=== PATIENT | male | born 1950 | race Caucasian/White ===

== ENCOUNTER 2016-11-24 11:56 | Outpatient (CLI) | payer MEDICARE, OTHER | END 2016-11-24 11:57 | disposition home or self-care (01) | DX: M05.79 Rheumatoid arthritis with rheumatoid factor of multiple sites without organ or systems involvement (principal) ==

== ENCOUNTER 2017-08-18 08:00 | Outpatient (CLI) | payer MEDICARE, OTHER ==
[2017-08-18 19:16] LABS: BASOPHILS # (AUTO) 0.1 10^3/uL (0.0-0.1); BASOPHILS % (AUTO) 1.2 %; EOSINOPHILS # (AUTO) 0.4 10^3/uL (0.0-0.7); EOSINOPHILS % (AUTO) 6.4 %; HCT - HEMATOCRIT 43.8 % (42.0-52.0); HGB - HEMOGLOBIN 14.4 g/dL (14.0-18.0); LYMPHOCYTES # (AUTO) 1.5 10^3/uL (1.5-3.5); LYMPHOCYTES % (AUTO) 23.8 %; MEAN CORPUSCULAR HEMOGLOBIN 30.2 pg (27.0-31.0); MEAN CORPUSCULAR HGB CONC 32.9 g/dL (32.0-36.0); MEAN CORPUSCULAR VOLUME 91.8 fL (80.0-94.0); MEAN PLATELET VOLUME 8.3 fL (7.4-11.4); MONOCYTES # (AUTO) 0.6 10^3/uL (0.0-1.0); MONOCYTES % (AUTO) 9.6 %; NEUTROPHILS # (AUTO) 3.8 10^3/uL (1.5-6.6); NUCLEATED RED BLOOD CELLS AUTO 0.2 /100WBC; RED BLOOD COUNT 4.77 10^6/uL (4.70-6.10); RED CELL DISTRIBUTION WIDTH 14.9 % (12.0-15.0); UNCORRECTED WHITE BLOOD COUNT 6.4 x10^3/uL; WHITE BLOOD COUNT 6.4 x10^3/uL (4.8-10.8)
[2017-08-18 19:33] LABS: ALBUMIN/GLOBULIN RATIO 1.2 (1.0-2.2); BILIRUBIN,TOTAL 1.1 mg/dL (0.2-1.0); CALCIUM 9.2 mg/dL (8.5-10.3); CREATININE 1.3 mg/dL (0.6-1.2); POTASSIUM 4.7 mmol/L (3.5-5.0); TOTAL PROTEIN 7.5 g/dL (6.7-8.2)
== END 2017-08-18 08:01 ==
LOC: LAB.WCP 08:00
PROVIDERS: ATTEND Internal Medicine Rheumatology
DX: M05.79 Rheumatoid arthritis with rheumatoid factor of multiple sites without organ or systems involvement (principal)
CPT/HCPCS: 36415; 80053; 85025; 85651

== ENCOUNTER 2017-10-01 08:54 | Emergency (ER) | payer MEDICARE, OTHER ==
[2017-10-01] MEDS ORDERED: LIDOCAINE 1% 2 ML VIAL ONE (09:33)
--- NOTE | 2017-10-01 09:33 | ED Physician Documentation ---
PD HPI WOUND RECHECK - Stated complaint Stated Complaint: WOUND CHECK - Chief complaint Chief Complaint: General - Histroy obtained from History obtained from: Patient, Family - History of Present Illness Location: Back Timing - onset: Other (mole removal 09/19, sutures removed yesterday) Pain level max: 0 Pain level now: 0 Associated symptoms: Drainage (wound dehiscence). No: Fever, Redness, Swelling Review of Systems Constitutional: denies: Fever Skin: denies: Rash PD PAST MEDICAL HISTORY - Past Medical History Past Medical History: Yes Cardiovascular: Hypertension - Past Surgical History Past Surgical History: Yes Other past surgical history: mole removal - Present Medications Home Medications: Ambulatory Orders Medication Instructions Recorded Confirmed Aspirin 81 mg PO DAILY 10/01/17 10/01/17 Atorvastatin [Lipitor] 20 mg PO DAILY 10/01/17 10/01/17 Fluticasone/Salmeterol [Advair BID 10/01/17 100-50 Diskus] Golimumab [Simponi] 10/01/17 Levothyroxine Sodium 137 mcg PO DAILY 10/01/17 10/01/17 Losartan [Cozaar] 50 mg PO BID 10/01/17 10/01/17 Tiotropium [place] [Spiriva] DAILY 10/01/17 Zolpidem Tartrate [Ambien] 10 mg PO DAILY 10/01/17 10/01/17 - Allergies Allergies/Adverse Reactions: Allergies Allergy/AdvReac Type Severity Reaction Status Date / Time No Known Drug Allergies Allergy Verified 10/01/17 09:01 - Living Situation Living Situation: reports: With family Living Arrangement: reports: At home - Social History Does the pt have substance abuse?: No PD ED PE NORMAL - Vitals Vital signs reviewed: Yes - General General: Alert and oriented X 3, No acute distress - Derm Derm: Warm and dry - Neuro Neuro: Alert and oriented X 3 PD ED PE EXPANDED - Visual Whole body visual: 1 - laceration (2cm, linear, NVI. no signs of infection) Results - Vitals Vitals: Vital Signs - 24 hr 10/01/17 08:58 Temperature 36.1 C L Heart Rate 67 Respiratory 16 Rate Blood Pressure 119/65 O2 Saturation 96 Oxygen O2 Source Room air Procedures - Laceration (location) back Length in cm: 2 Wound type: Linear Neurovascular status: Sensory intact, Motor intact, Vascular intact Anesthesia: Lidocaine 1% Wound Preparation: Irrigated copiously NS (500ml), Wound explored Skin layer closure: Nela (5) Other: Patient tolerated well, No complications, Neurovascular intact, Dressing applied, Tetanus UTD Complexity: Simple PD MEDICAL DECISION MAKING - ED course Complexity details: re-evaluated patient, considered differential, d/w patient, d/w family ED course: Patient is a 66-year-old gentleman who presents to the emergency department with a wound dehiscence from a mole removal. This was repaired with nela. Tolerated well. Warnings of infection and instructions on wound care given at bedside. Also counseled on how to minimize scarring. Patient and family counseled regarding signs and symptoms for which I believe and urgent re- evaluation would be necessary. Patient with good understanding of and agreement to plan and is comfortable going home at this time This document was made in part using voice recognition software. While efforts are made to proofread this document, sound alike and grammatical errors may occur. Departure - Departure Disposition: 01 Home, Self Care Clinical Impression: Wound dehiscence Condition: Good Instructions: ED Wound Care Follow-Up: DONOVAN AHN [Primary Care Provider] - (in 14 days for staple removal) Comments: Keep the wound clean. Return if you worsen. The nela should be removed with your doctor in approximately 14 days.
[2017-10-01 10:21] VITALS: BP 118/62
== END 2017-10-01 10:19 | disposition home or self-care (01) ==
LOC: ED 08:54
DX: T81.31XA Disruption of external operation (surgical) wound, not elsewhere classified, initial encounter (principal); I10 Essential (primary) hypertension; Z79.82 Long term (current) use of aspirin
CPT/HCPCS: 12001; 99282; 99283

== ENCOUNTER 2017-11-21 14:49 | Outpatient (CLI) | payer MEDICARE, OTHER | END 2017-11-21 14:50 | disposition home or self-care (01) | LOC: SC 14:49 | PROVIDERS: ATTEND Nurse Practitioner Family | DX: G47.33 Obstructive sleep apnea (adult) (pediatric) (principal) | CPT/HCPCS: 99214; G0463; 99212 ==

== ENCOUNTER 2018-10-09 14:58 | Outpatient (CLI) | payer MEDICARE, OTHER ==
--- NOTE | 2018-10-10 12:20 | XRAY Report ---
Reason: neck pain Procedure Date: 10/09/2018 Accession Number: [id number] / [id number] Procedure: XR - Cervical Spine w/Flex/Ext CPT Code: FULL RESULT: EXAM: CERVICAL SPINE RADIOGRAPHY EXAM DATE: 10/09/2018 03:22 PM. CLINICAL HISTORY: Neck pain. COMPARISONS: None. TECHNIQUE: 5 views. FINDINGS: Alignment: No abnormal listhesis is seen on flexion and extension views. There is straightening of the normal cervical curvature in both flexion and extension with most motion occurring at the upper cervical spine C1-C3. No spondylolisthesis or scoliosis. Bones: The cervical vertebral bodies and posterior elements are well-visualized from the skull base through C6-C7. No fractures or bone lesions. Disks: There is loss of disk space height which is most pronounced at C5-C6 and C6-C7. Facets: There is facet arthropathy and lateral mass hypertrophy, most pronounced in the mid cervical spine. Soft Tissues: Normal. No prevertebral soft tissue swelling. The visualized lung apices are clear. IMPRESSION: Straightening of the normal cervical curvature and degenerative changes. RADIA
== END 2018-10-09 14:59 | disposition home or self-care (01) ==
LOC: DI 14:58
PROVIDERS: ATTEND Internal Medicine Rheumatology
DX: M47.9 Spondylosis, unspecified (principal); M50.322 Other cervical disc degeneration at C5-C6 level
CPT/HCPCS: 72052

== ENCOUNTER 2019-05-01 08:44 | Outpatient (CLI) | payer MEDICARE, OTHER | END 2019-05-01 08:45 | disposition home or self-care (01) | LOC: SC 08:44 | PROVIDERS: ATTEND Nurse Practitioner Family | DX: G47.33 Obstructive sleep apnea (adult) (pediatric) (principal) | CPT/HCPCS: 99214; G0463; 99212 ==

== ENCOUNTER 2020-05-21 08:55 | Outpatient (CLI) | payer MEDICARE, OTHER ==
[2020-05-21 09:40] VITALS: BP 138/82
--- NOTE | 2020-05-21 09:40 | SLEEP CARE CONSULTATION ---
Information from patient questionnaire entered by Lyla Winslow. I have reviewed and concur with the information entered by Lyla Winslow. This document represents the service I personally performed and the decisions made by me, Eileen Sanchez, RN, MSN, COMPUTER COMPOSITOR. History of Present Illness Service Date and Time: 05/21/2020 0855 Previous diagnosis: Very Severe, Obstructive Sleep Apnea-Hypopnea Syndrome AHI: 64.3 Reason for follow up: annual Equipment type: BiPAP Equipment obtained from: [facility] (transfer went well- getting supplies as needed.) Mask style: Full face (Dreamwear) Mask brand: Respironics Backup mask available: Yes (old mask ) Last cushion change: a few weeks ago Prior sleep studies: Yes Year and Where: 2014 [facility] Type of Sleep Study: Polysomnography CPAP Compliance Data - Data Reviewed with Patient Average duration of nightly device use: 9H 51M Compliance rate %: 100 Current pressure setting (cmH2O): 18/12 Average residual AHI: 2.0 Average large leak: 2H 7M 27S Subjective Patient concerns: reports: mask leak noise, nasal congestion (wakes patient frequently in the middle of the night and uses saline nasal spray / Flonase as needed/ showers in morning. ), dry mouth, nose, throat (wakes to significant dry mouth most nights, uses Biotene in middle of night ), other (humdifier not working - new device due in July ). denies: aerophagia, mask discomfort, air blowing in eyes, condensation in mask/hose, epistaxis Observed to snore while using device: No Current pressure setting perceived as: comfortable On therapy, patient: reports: sleeping better (but lots of fragmentation as noted ), awakening more refreshed, being more awake and alert during the day, more rested overall. denies: drowsiness while driving Allergies and Home Medications Known drug allergies: No Home medication list reviewed: No (no changes ) Review of Systems Review of systems same as previous: Yes Physical Exam Blood Pressure: 138/82 Cuff size: long Heart Rate: 73 O2 Saturation: 96 Height: 6 ft Weight: 236 lb 12.8 oz Body Mass Index: 32.1 BMI Classification: Obese Impression and Plan 1. Obstructive Sleep Apnea-Hypopnea Syndrome, very severe, with good treatment compliance and good apnea control. On CPAP therapy, the patient has better sleep quality and is more rested overall. The patients BiPAP is over 5 years old in July and the humidifier and heated hose are no longer working, the latch on humidifier no longer locks closed. Thus he is advised to contact my office in July and I will make an DWO prescription. Mask refitting was ordered to redu ce mask leaks and oral dryness from mask leaks. Nasal congestion and oral dryness can be reduced with increasing the BiPAP humidity when he gets a new device. Saline nasal spray is advised to be used nightly prior before BiPAP instead of middle of night follwed by the Flonase so there is better medication adherence. I reviewed how this practice is to wash off any nasal allergens to facilitate nasal breathing. In addition, a steamy shower before bed instead of in the morning will often assist nasal drainage. Mask leaks can be reduced by washing mask daily instead of using So Clean. He was informed of FDA health risk warning and advise to stop use. He can check online for FDA warning. Additionally, mask leaks predominately from when patient sleeps on their side can be reduced by using a CPAP pillow. A CPAP pillow sample was shown on shelf. This and other styes can be purchased online. His sleep requirement has increased from 6.5 - 7.8 hours in 2019 and 2018 to 9.8 hours. His sleep has increased in disruption due to nasal congestion and mask leaks and oral dryness as well as nocturia. Hopefully above measures will reduce this fragmention. Thus he is advised then to set alarm to limit time in bed to 9 hours. If he still requires more sleep then he is advised to follow up with PCP for further evaluation of fatigue. Patient BMI is 32.1, he has recently gained more weight and advised to start working on losing weight and agreed with plan. This will be addressed in more detail at his follow up visit after BiPAP new device compliance follow up. Patient's apnea severity and rationale for treatment to reduce apnea, improve sleep quality and reduce cardiovascular and cerebrovascular events was reviewed. I also reviewed the benefit of consistent device use of BiPAP for hypertension. * Continue Bi PAP pressure at 18/12 cmH2O * Implement measures to reduce nasal congestion, oral dryness and mask leaks. * Mask refitting. * Follow up with PCP if continued need for sleep more than 9 hours as discussed. * Notify me if snoring with mask or feeling that the pressure is too much or too little * Attempt to lose weight * Call this office if any problems using CPAP * Return for follow up in fall after new device , or sooner if concerns arise . Visit Type: In Office Time Spent with Patient (minutes): 35 Provider Statement: I spent 100% of the Face to Face Visit with the patient with greater than 50% spent counseling the patient and coordination of care.
== END 2020-05-21 08:56 | disposition home or self-care (01) ==
LOC: SC 08:55
PROVIDERS: ATTEND Nurse Practitioner Family
DX: G47.33 Obstructive sleep apnea (adult) (pediatric) (principal); E66.9 Obesity, unspecified; Z68.32 Body mass index [BMI] 32.0-32.9, adult
CPT/HCPCS: 99214; G0463; 99212

== ENCOUNTER 2020-09-04 09:16 | Outpatient (CLI) | payer MEDICARE, OTHER ==
--- NOTE | 2020-09-04 09:46 | SLEEP CARE CONSULTATION ---
Information from patient questionnaire entered by Jackelyn Tyler. I have reviewed and concur with the information entered by Jackelyn Tyler. This document represents the service I personally performed and the decisions made by , Day Prescott ARNP. History of Present Illness Service Date and Time: 09/04/2020915 Previous diagnosis: Very Severe, Obstructive Sleep Apnea-Hypopnea Syndrome AHI: 64.3 (in 2014) Reason for follow up: other (4 month) Equipment type: BiPAP Equipment obtained from: [facility] (getting supplies as needed) Mask style: Full face Mask brand: Respironics (Dreamwear) Backup mask available: Yes (old mask) Last cushion change: 2 weeks Prior sleep studies: Yes Year and Where: 2014 - [facility] Type of Sleep Study: Polysomnography HPI additional information: ROSALIA HALE was diagnosed to have very severe, AHI 64.3, obstructive sleep apnea-hypopnea syndrome and returned today for BIPAP therapy 4 month follow-up. CPAP Compliance Data - Data Reviewed with Patient Average duration of nightly device use: 10 Compliance rate %: 100 (90 days) Current pressure setting (cmH2O): 18/12 Humidity settin Heated hose settin Average residual AHI: 2.3 Average large leak: 27 min 51 sec Subjective Patient concerns: reports: mask discomfort (changed to new full face mask and is more comfortable now), nasal congestion (using OTC nasal spray, saline too), dry mouth, nose, throat (dry mouth because heated hose not working well and not using humidity due to malfunction of reservoir). denies: aerophagia, air blowing in eyes, mask leak noise, condensation in mask/hose, epistaxis, other Observed to snore while using device: No Current pressure setting perceived as: comfortable (puts down 2 times at beginning of night but then okay rest of night) On therapy, patient: reports: sleeping better, awakening more refreshed, being more awake and alert during the day, more rested overall. denies: drowsiness while driving Initial [place] Sleepiness Scale score: 15 (in 2014) Current [place] Sleepiness Scale score: 8 Allergies and Home Medications Drug allergies reviewed: Yes (NKDA) Home medication list reviewed: Yes (no changes) Review of Systems Review of systems same as previous: Yes (no changes) Physical Exam Heart Rate: 62 O2 Saturation: 96 Height: 6 ft Weight: 240 lb Body Mass Index: 32.5 BMI Classification: Obese Impression and Plan 1. Obstructive Sleep Apnea-Hypopnea Syndrome, very severe, with excellent treatment compliance and good apnea control. On CPAP therapy, the patient has better sleep quality and is more rested overall. The patients CPAP is over 5 years old and of reasonable use. His heated hose is not working and the clip that keeps the humidifier reservoir closed is not latching. Thus, the CPAP will be updated. His DME has already made an appointment with him next week to obtain his new machine. The new CPAPs also have a better humidity system which could assist control of patients dryness symptoms. A DWO prescription will be made. Compliance guidelines for new device and follow up discussed. Patient's apnea severity and rationale for treatment to reduce apnea, improve sleep quality and reduce cardiovascular and cerebrovascular events was reviewed. I also reviewed the benefit of consistent device use of CPAP for hypertension. * Continue BIPAP pressure at 18/12 cmH2O * Notify me if snoring with mask or feeling that the pressure is too much or too little * Attempt to lose weight * Call this office if any problems using CPAP * Return for follow up in 1-2 months, or sooner if concerns arise Counseling Topics: Spare mask, Weight loss health impact Visit Type: In Office Time Spent with Patient (minutes): 16 Provider Statement: I spent 100% of the Face to Face Visit with the patient with greater than 50% spent counseling the patient and coordination of care.
== END 2020-09-04 09:17 | disposition home or self-care (01) ==
LOC: SC 09:16
PROVIDERS: ATTEND Nurse Practitioner Family
DX: G47.33 Obstructive sleep apnea (adult) (pediatric) (principal); E66.9 Obesity, unspecified; Z68.32 Body mass index [BMI] 32.0-32.9, adult
CPT/HCPCS: 99212; G0463

== ENCOUNTER 2020-12-03 08:00 | Outpatient (CLI) | payer MEDICARE, OTHER ==
[2020-12-03 18:01] LABS: BASOPHILS # (AUTO) 0.1 10^3/uL (0.0-0.1); BASOPHILS % (AUTO) 1.2 %; EOSINOPHILS # (AUTO) 0.6 10^3/uL (0.0-0.7); EOSINOPHILS % (AUTO) 9.4 %; HGB - HEMOGLOBIN 14.4 g/dL (14.0-18.0); LYMPHOCYTES # (AUTO) 1.7 10^3/uL (1.5-3.5); LYMPHOCYTES % (AUTO) 25.4 %; MEAN CORPUSCULAR HEMOGLOBIN 31.2 pg (27.0-31.0); MEAN CORPUSCULAR HGB CONC 32.5 g/dL (32.0-36.0); MEAN CORPUSCULAR VOLUME 96.1 fL (80.0-94.0); MEAN PLATELET VOLUME 10.5 fL (7.4-11.4); MONOCYTES # (AUTO) 0.8 10^3/uL (0.0-1.0); MONOCYTES % (AUTO) 11.4 %; NEUTROPHILS # (AUTO) 3.6 10^3/uL (1.5-6.6); NEUTROPHILS % (AUTO) 52.3 %; PLT - PLATELET COUNT 270 10^3/uL (130-450); RED BLOOD COUNT 4.61 10^6/uL (4.70-6.10); RED CELL DISTRIBUTION WIDTH 13.8 % (12.0-15.0); WHITE BLOOD COUNT 6.8 x10^3/uL (4.8-10.8)
[2020-12-03 18:18] LABS: ALBUMIN 4.3 g/dL (3.2-5.5); ALBUMIN/GLOBULIN RATIO 1.2 (1.0-2.2); BILIRUBIN,TOTAL 0.9 mg/dL (0.2-1.0); CALCIUM 9.5 mg/dL (8.5-10.3); CREATININE 1.3 mg/dL (0.6-1.2); TOTAL PROTEIN 7.9 g/dL (6.7-8.2)
== END 2020-12-03 23:59 | disposition home or self-care (01) ==
LOC: LAB.WCP 08:00
PROVIDERS: ATTEND Internal Medicine Rheumatology
DX: M05.79 Rheumatoid arthritis with rheumatoid factor of multiple sites without organ or systems involvement (principal)
CPT/HCPCS: 36415; 80053; 85025; 85651

== ENCOUNTER 2021-01-19 08:31 | Emergency (ER) | payer MEDICARE, OTHER ==
[2021-01-19 08:56] LABS: BASOPHILS % (AUTO) 0.4 %; EOSINOPHILS # (AUTO) 0.4 10^3/uL (0.0-0.7); EOSINOPHILS % (AUTO) 4.1 %; HCT - HEMATOCRIT 43.8 % (42.0-52.0); HGB - HEMOGLOBIN 14.2 g/dL (14.0-18.0); LYMPHOCYTES # (AUTO) 1.7 10^3/uL (1.5-3.5); LYMPHOCYTES % (AUTO) 18.6 %; MEAN CORPUSCULAR HEMOGLOBIN 30.9 pg (27.0-31.0); MEAN CORPUSCULAR HGB CONC 32.4 g/dL (32.0-36.0); MEAN CORPUSCULAR VOLUME 95.4 fL (80.0-94.0); MEAN PLATELET VOLUME 9.8 fL (7.4-11.4); NEUTROPHILS % (AUTO) 65.6 %; PLT - PLATELET COUNT 235 10^3/uL (130-450); RED BLOOD COUNT 4.59 10^6/uL (4.70-6.10); RED CELL DISTRIBUTION WIDTH 14.1 % (12.0-15.0); WHITE BLOOD COUNT 9.2 x10^3/uL (4.8-10.8)
[2021-01-19] MEDS ORDERED: CHERRY SYRUP 10 ML UDC PO ONE (09:07)
[2021-01-19] MEDS ORDERED: DEXAMETHASONE 10 MG/ML VIAL PO STA (09:07)
--- NOTE | 2021-01-19 09:09 | ED Physician Documentation ---
PD HPI CHEST PAIN - Stated complaint Stated Complaint: CHEST PAIN - Chief complaint Chief Complaint: Cardiac - History obtained from History obtained from: Patient - History of Present Illness Timing - onset: How many weeks ago (3) Timing - onset during: Light activity Timing - duration: Weeks (3) Timing - details: Gradual onset, Still present, Waxing and waning Quality: Pressure Location: Substernal, Left chest Radiation: No: Jaw, Neck, Back, Abdominal, Left upper extremity, Right upper extremity Improved by: Nothing Worsened by: Inspiration. No: Exertion, Eating, Movement, Palpation Associated symptoms: Cough. No: Shortness of air, Diaphoresis, Nausea, Vomiting, Feeling faint / dizzy, General Weakness, Palpitations Similar symptoms before: Has not had sx before Recently seen: Not recently seen - Additional information Additional information: 30-year-old male with a history of sleep apnea and rhinitis medicamentosa as well as COPD has developed chest pain in the left chest under the left breast that is worse with inspiration. He denies any exertional component to the chest pain and he has not injured his chest and does not have tenderness to the chest wall. He has not otherwise been ill but does acknowledge he has significant nasal congestion and a difficult time breathing through his nose. He recalls that he has tried fluticasone for relief of this unsuccessfully. He does state that he at one time was treated for sinus infection with a course of antibiotic and a short course of steroid and at that time he was able to get off of the oxymetazoline on for some period of time. He does have a cough which is normal for his COPD this has not changed significantly. He does complain of nasal congestion and has asked his primary care doctor for a treatment regimen. Review of Systems Constitutional: denies: Fever Eyes: denies: Decreased vision Ears: denies: Ear pain Nose: reports: Rhinorrhea / runny nose, Congestion Throat: denies: Sore throat Cardiac: reports: Chest pain / pressure. denies: Palpitations, Pedal edema, Calf pain Respiratory: reports: Dyspnea, Cough GI: denies: Abdominal Pain, Nausea, Vomiting : denies: Dysuria, Frequency Skin: denies: Rash Musculoskeletal: denies: Neck pain, Back pain, Extremity pain Neurologic: denies: Generalized weakness, Focal weakness, Numbness PD PAST MEDICAL HISTORY - Past Medical History Past Medical History: Yes Cardiovascular: Hypertension, High cholesterol Respiratory: COPD Musculoskeletal: Rheumatoid arthritis - Past Surgical History Past Surgical History: Yes - Present Medications Home Medications: Ambulatory Orders Medication Instructions Recorded Confirmed Aspirin 81 mg PO DAILY 10/01/17 10/01/17 Atorvastatin [Lipitor] 20 mg PO DAILY 10/01/17 10/01/17 Fluticasone/Salmeterol [Advair BID 10/01/17 100-50 Diskus] Golimumab [Simponi] 10/01/17 Levothyroxine Sodium 137 mcg PO DAILY 10/01/17 10/01/17 Losartan [Cozaar] 50 mg PO BID 10/01/17 10/01/17 Tiotropium [place] [Spiriva] DAILY 10/01/17 Zolpidem Tartrate [Ambien] 10 mg PO DAILY 10/01/17 10/01/17 Albuterol Sulfate [Proair Hfa 2 puffs 01/19/21 Inhaler] Amox/Clav 875/125 [Augmentin] 1 each PO Q12H #20 tablet 01/19/21 Gabapentin [Neurontin] 600 mg BID 01/19/21 01/19/21 Oxycodone HCl/Acetaminophen 1 tab PRN 01/19/21 [Percocet 10-325 mg Tablet] predniSONE [Deltasone] 10 mg PO ONCE #26 tablet 01/19/21 - Allergies Allergies/Adverse Reactions: Allergies Allergy/AdvReac Type Severity Reaction Status Date / Time No Known Drug Allergies Allergy Verified 01/19/21 08:39 - Social History Does the pt smoke?: No Smoking Status: Never smoker Does the pt have substance abuse?: No PD ED PE NORMAL - Vitals Vital signs reviewed: Yes (hypertensive) - General General: Alert and oriented X 3, No acute distress, Well developed/nourished - HEENT HEENT: Atraumatic, PERRL, EOMI, Other (The left TM is inflamed along the umbo the right is clear ) - Neck Neck: Supple, no meningeal sign, No bony TTP - Cardiac Cardiac: RRR, No murmur - Respiratory Respiratory: No respiratory distress, Clear bilaterally, Other (no chest wall tenderness) - Abdomen Abdomen: Soft, Non tender - Back Back: No CVA TTP, No spinal TTP - Derm Derm: Normal color, Warm and dry, No rash - Extremities Extremities: No deformity, No edema - Neuro Neuro: Alert and oriented X 3, tariff counsel 2-12 intact, No motor deficit, No sensory deficit, Normal speech Eye Opening: Spontaneous Motor: Obeys Commands Verbal: Oriented GCS Score: 15 - Psych Psych: Normal mood, Normal affect Results - Vitals Vitals: Vital Signs - 24 hr 01/19/21 01/19/21 01/19/21 08:39 10:09 10:37 Temperature 36.3 C L 36.7 C Heart Rate 66 58 L 57 L Respiratory 14 14 14 Rate Blood Pressure 167/71 H 147/80 H 149/76 H O2 Saturation 97 95 96 Oxygen O2 Source Room air - EKG (time done) 0837 Rate: Rate (enter#) Rhythm: NSR Other comments: Other comments (early transition ) Compare to prior EKG: Old EKG unavailable Computer interpretation: Agree with computer - Labs Labs: Laboratory Tests 01/19/21 01/19/21 01/19/21 08:45 08:45 08:45 WBC 9.2 RBC 4.59 L Hgb 14.2 Hct 43.8 MCV 95.4 H MCH 30.9 MCHC 32.4 RDW 14.1 Plt Count 235 MPV 9.8 Neut # (Auto) 6.0 Lymph # (Auto) 1.7 [place] # (Auto) 1.0 Eos # (Auto) 0.4 Baso # (Auto) 0.0 Absolute Nucleated RBC 0.00 Nucleated RBC % 0.0 Sodium 139 Potassium 4.2 Chloride 105 Carbon Dioxide 27 Anion Gap 7.0 BUN 25 H Creatinine 1.3 H Estimated GFR (MDRD) 54 L Glucose 111 H Calcium 9.4 Total Bilirubin 1.1 H AST 43 H ALT 55 Alkaline Phosphatase 59 Troponin I High Sens 6.6 Total Protein 8.3 H Albumin 4.2 Globulin 4.1 Albumin/Globulin Ratio 1.0 Lipase 40 - Rads (name of study) chest Radiology: Prelim report reviewed (Impression: Patchy bibasilar atelectasis.) PD MEDICAL DECISION MAKING - ED course Complexity details: reviewed results, re-evaluated patient, considered differential, d/w patient ED course: 70-year-old male with a history of sleep apnea COPD and hypertension has developed chest pain that is pleuritic in nature and he has rhinitis medicamentosa and is having some difficult time breathing through his nose he also has developed a slight cough he has otitis on exam and atelectasis bilaterally in the chest x-ray and he is recently had some improvement with use of his rescue inhaler which he does not usually have to use. He is on Advair and that is usually sufficient. He appears to have a exacerbation of his COPD causing chest wall fatigue and pleuritic chest pain. He is administered dexamethasone we will start him on an antibiotic and a course of prednisone as he has had success in treating his rhinitis medicamentosa with this previously. Departure - Departure Disposition: 01 Home, Self Care Clinical Impression: Pleuritic chest pain, COPD with exacerbation Otitis media Qualifiers: Otitis media type: suppurative Chronicity: acute Laterality: left Recurrence: not specified as recurrent Spontaneous tympanic membrane rupture: without spontaneous rupture Qualified Code(s): H66.002 - Acute suppurative otitis media without spontaneous rupture of ear drum, left ear Condition: Stable Instructions: ED COPD Flare, ED Chest Pain Costochondritis, ED Otitis Media Acute Adult, ED Chest Pain Pleurisy Follow-Up: QUOC MCCOLLUM MD [Primary Care Provider] - Prescriptions: Amox/Clav 875/125 [Augmentin] 1 each PO Q12H #20 tablet predniSONE [Deltasone] 10 mg PO ONCE #26 tablet Comments: In addition to this flare of your COPD you do have the chronic rhinitis medicamentosa and the recommendation with this is to attempt to get off of this medicine and this is a good time to try this. Discharge Date/Time: 01/19/21 10:39
[2021-01-19 09:10] LABS: ALBUMIN 4.2 g/dL (3.2-5.5); BILIRUBIN,TOTAL 1.1 mg/dL (0.2-1.0); CALCIUM 9.4 mg/dL (8.5-10.3); CREATININE 1.3 mg/dL (0.6-1.2); POTASSIUM 4.2 mmol/L (3.5-5.0); TOTAL PROTEIN 8.3 g/dL (6.7-8.2)
--- NOTE | 2021-01-19 09:12 | XRAY Report ---
PROCEDURE: Chest 1 View X-Ray INDICATIONS: Chest Pain TECHNIQUE: One view of the chest was acquired. COMPARISON: None FINDINGS: Surgical changes and devices: None. Lungs and pleura: No pleural effusions or pneumothorax. Patchy bibasilar atelectasis. Mediastinum: Mediastinal contours appear normal. Heart size is normal. Bones and chest wall: No suspicious bony lesions. Overlying soft tissues appear unremarkable. IMPRESSION: Patchy bibasilar atelectasis. Reviewed by: Mehdi Jay MD on 01/19/2021 9:10 AM PDT Approved by: Mehdi Jay MD on 01/19/2021 9:10 AM PDT Station ID: [id number]
[2021-01-19 10:38] VITALS: BP 149/76
== END 2021-01-19 10:39 | disposition home or self-care (01) ==
LOC: ED 08:31
DX: J44.1 Chronic obstructive pulmonary disease with (acute) exacerbation (principal); R07.81 Pleurodynia; H66.002 Acute suppurative otitis media without spontaneous rupture of ear drum, left ear; J31.0 Chronic rhinitis; G47.30 Sleep apnea, unspecified; I10 Essential (primary) hypertension; Z79.82 Long term (current) use of aspirin
CPT/HCPCS: 36415; 71045; 80053; 83690; 84484; 85025; 93005; 99284; A9270

== ENCOUNTER 2021-07-15 07:00 | Outpatient (CLI) | payer MEDICARE, OTHER ==
[2021-07-15 11:48] LABS: BASOPHILS # (AUTO) 0.1 10^3/uL (0.0-0.1); BASOPHILS % (AUTO) 0.7 %; EOSINOPHILS # (AUTO) 0.8 10^3/uL (0.0-0.7); EOSINOPHILS % (AUTO) 11.4 %; HCT - HEMATOCRIT 44.5 % (42.0-52.0); HGB - HEMOGLOBIN 14.6 g/dL (14.0-18.0); LYMPHOCYTES # (AUTO) 1.3 10^3/uL (1.5-3.5); LYMPHOCYTES % (AUTO) 19.5 %; MEAN CORPUSCULAR HEMOGLOBIN 31.2 pg (27.0-31.0); MEAN CORPUSCULAR HGB CONC 32.8 g/dL (32.0-36.0); MEAN CORPUSCULAR VOLUME 95.1 fL (80.0-94.0); MEAN PLATELET VOLUME 10.4 fL (7.4-11.4); MONOCYTES # (AUTO) 0.7 10^3/uL (0.0-1.0); MONOCYTES % (AUTO) 10.5 %; NEUTROPHILS # (AUTO) 3.9 10^3/uL (1.5-6.6); NEUTROPHILS % (AUTO) 57.5 %; PLT - PLATELET COUNT 240 10^3/uL (130-450); RED BLOOD COUNT 4.68 10^6/uL (4.70-6.10); RED CELL DISTRIBUTION WIDTH 13.9 % (12.0-15.0); WHITE BLOOD COUNT 6.8 x10^3/uL (4.8-10.8)
[2021-07-15 11:57] LABS: ALBUMIN 4.3 g/dL (3.2-5.5); BILIRUBIN,TOTAL 1.1 mg/dL (0.2-1.0); CALCIUM 9.3 mg/dL (8.5-10.3); CREATININE 1.5 mg/dL (0.6-1.2); POTASSIUM 4.6 mmol/L (3.5-5.0); TOTAL PROTEIN 8.4 g/dL (6.7-8.2)
[2021-07-16 12:47] LABS: HEPATITIS B SURFACE ANTIGEN NON-REACTIVE (NON-REACTIVE); HEPATITIS C ANTIBODY NON-REACTIVE (NON-REACTIVE)
== END 2021-07-15 23:59 | disposition home or self-care (01) ==
LOC: LAB.WCP 07:00
PROVIDERS: ATTEND Internal Medicine
DX: M05.79 Rheumatoid arthritis with rheumatoid factor of multiple sites without organ or systems involvement (principal)
CPT/HCPCS: 36415; 80053; 85025; 85651; 86803; 87340

== ENCOUNTER 2022-03-11 11:33 | Outpatient (CLI) | payer MEDICARE, OTHER ==
[2022-03-11 18:01] LABS: BASOPHILS # (AUTO) 0.1 10^3/uL (0.0-0.1); EOSINOPHILS # (AUTO) 0.8 10^3/uL (0.0-0.7); EOSINOPHILS % (AUTO) 13.2 %; HCT - HEMATOCRIT 43.2 % (42.0-52.0); HGB - HEMOGLOBIN 14.2 g/dL (14.0-18.0); LYMPHOCYTES # (AUTO) 1.8 10^3/uL (1.5-3.5); LYMPHOCYTES % (AUTO) 29.5 %; MEAN CORPUSCULAR HEMOGLOBIN 31.4 pg (27.0-31.0); MEAN CORPUSCULAR HGB CONC 32.9 g/dL (32.0-36.0); MEAN CORPUSCULAR VOLUME 95.6 fL (80.0-94.0); MONOCYTES # (AUTO) 0.7 10^3/uL (0.0-1.0); MONOCYTES % (AUTO) 11.1 %; NEUTROPHILS # (AUTO) 2.7 10^3/uL (1.5-6.6); NEUTROPHILS % (AUTO) 44.9 %; PLT - PLATELET COUNT 261 10^3/uL (130-450); RED BLOOD COUNT 4.52 10^6/uL (4.70-6.10); RED CELL DISTRIBUTION WIDTH 14.3 % (12.0-15.0)
== END 2022-03-11 11:34 | disposition home or self-care (01) ==
LOC: LAB.N 11:33
PROVIDERS: ATTEND Internal Medicine Rheumatology
DX: M05.79 Rheumatoid arthritis with rheumatoid factor of multiple sites without organ or systems involvement (principal)
CPT/HCPCS: 36415; 85025; 85651

== ENCOUNTER 2022-03-25 11:24 | Outpatient (CLI) | payer MEDICARE, OTHER ==
[2022-03-25 12:04] VITALS: BP 156/83
--- NOTE | 2022-03-25 12:04 | SLEEP CARE CONSULTATION ---
Information from patient questionnaire entered by Naveen Orozco MA. I have reviewed and concur with the information entered by Naveen Orozco MA. This document represents the service I personally performed and the decisions made by , Day Prescott ARNP. History of Present Illness Service Date and Time: 03/25/2022 1124 Previous diagnosis: Very Severe, Obstructive Sleep Apnea-Hypopnea Syndrome AHI: 64.3 (in 2014) Reason for follow up: annual (LAST SEEN 09/19, DUNIA, ) Equipment type: BiPAP Equipment obtained from: Other ([facility]; getting supplies as needed) Mask style: Full face Backup mask available: Yes (old mask) Last cushion change: 1 month Prior sleep studies: Yes Year and Where: 2014 - [facility] HPI additional information: ROSALIA HALE was diagnosed to have very severe, AHI 64.3, obstructive sleep apnea-hypopnea syndrome and returned today for BIPAP therapy annual follow-up. Sleep Study - Results Type of Sleep Study: Polysomnography Prior sleep studies: Yes Year and Where: 2014 - [facility] CPAP Compliance Data - Data Reviewed with Patient Average duration of nightly device use: 8 hours 48 minutes Compliance rate %: 99.4 (180 days; used 180/180) Current pressure setting (cmH2O): 18/12 Average residual AHI: 2.8 Average large leak: 2 hours 37 minutes Subjective Patient concerns: reports: dry mouth, nose, throat (uses throat lozenges; oral venting too). denies: aerophagia, mask discomfort, air blowing in eyes, mask leak noise, condensation in mask/hose, nasal congestion, epistaxis, other Observed to snore while using device: No Current pressure setting perceived as: comfortable On therapy, patient: reports: sleeping better, awakening more refreshed, being more awake and alert during the day, more rested overall. denies: drowsiness while driving Initial [place] Sleepiness Scale score: 15 (in 2014) Current [place] Sleepiness Scale score: 6 Allergies and Home Medications Home medication list reviewed: Yes (no changes) Allergy and home medication list: Allergies No Known Drug Allergies Allergy (Verified 01/19/21 08:39) Review of Systems Review of systems same as previous: Yes (no changes) Physical Exam Vital signs obtained and entered by: Lillian OROZCO CMA [facility] Blood Pressure: 156/83 (resp 16, pulse 62, left) Heart Rate: 61 O2 Saturation: 96 (paper mask) Height: 6 ft Weight: 242 lb Weight change since last visit: excersing to loose weight. Body Mass Index: 32.8 BMI Classification: Obese Impression and Plan 1. Obstructive Sleep Apnea-Hypopnea Syndrome, very severe, with good treatment compliance and good apnea control. On BIPAP therapy, the patient has better sleep quality and is more rested overall. Patient has had a little oral dryness but he states he will catch himself sleeping with his mouth open even with a full facemask. He does use oral lozenges to help with the oral dryness. Patient denies problems with nasal congestion, epistaxis, skin irritation or aerophagia. Patient's apnea severity and rationale for treatment to reduce apnea, improve sleep quality and reduce cardiovascular and cerebrovascular events was reviewed. I also reviewed the benefit of consistent device use of BIPAP for hypertension. 2. Obesity, unspecified. Patient is exercising to try and lose weight. Currently patients BMI is 32.8. Obesity increases the risk of apnea, CPAP pressure requirements and overall health risks especially cardiovascular and diabetes. Thus patient is advised to continue to try to lose weight. Weight loss can be done with reducing portion size, reducing refined foods and balancing content with vegetables, fruit and whole grain foods. In addition, patient encouraged to get regular exercise. The patient's CPAP pressure range should accommodate some weight loss. Symptoms to report for additional pressure adjustment discussed. * Continue BIPAP pressure at 18/12 cmH2O * Update supplies * Notify me if snoring with mask or feeling that the pressure is too much or too little * Attempt to lose weight * Call this office if any problems using BIPAP * Return for follow up in 1 year, or sooner if concerns arise Counseling Topics: Spare mask, Weight loss health impact Visit Type: In Office Time Spent with Patient (minutes): 20 Provider Statement: I spent 100% of the Face to Face Visit with the patient with greater than 50% spent counseling the patient and coordination of care.
== END 2022-03-25 11:25 | disposition home or self-care (01) ==
LOC: SC 11:24
PROVIDERS: ATTEND Nurse Practitioner Family
DX: G47.33 Obstructive sleep apnea (adult) (pediatric) (principal); E66.9 Obesity, unspecified; Z68.32 Body mass index [BMI] 32.0-32.9, adult
CPT/HCPCS: 99213; G0463; 99212

== ENCOUNTER 2023-05-05 08:21 | Outpatient (CLI) | payer MEDICARE, OTHER ==
--- NOTE | 2023-05-05 08:57 | Sleep Patient Instructions ---
Sleep Center Visit Summary - Patient Visit Information Reason for Visit: Annual visit for PAP therapy - Patient Instructions Additional Instructions: You will continue with BIPAP therapy with pressure set at 18/12 cmH2O. A supply prescription will be updated with your DME. I added a note to service machine for issues with water chamber leaking air and latch popping open. They should call you about this order but reach out to them if you have not heard anything from them in a week or so. We encourage you to continue to try to lose weight. Please follow up with the sleep care office in 1 year. - Clinic Information Contact: [facility] [address] [place] [address] [email or web address] T: [phone]
--- NOTE | 2023-05-05 09:03 | SLEEP CARE CONSULTATION ---
Information from patient questionnaire entered by Myesha Low. I have reviewed and concur with the information entered by Myesha Low. This document represents the service I personally performed and the decisions made by me, Day Prescott ARNP. History of Present Illness Service Date and Time: 05/05/2023 0821 Previous diagnosis: Very Severe, Obstructive Sleep Apnea-Hypopnea Syndrome AHI: 64.3 (in 2014) Reason for follow up: annual (LAST SEEN 02/2022) Equipment type: BiPAP ([employer] [place] CARD NEEDED FOR DOWNLOAD AND PRESURE CHANGES) Equipment obtained from: Other ([facility]; getting supplies as needed) Mask style: Full face Mask brand: [employer] Backup mask available: Yes (old mask) Last cushion change: 1 month Prior sleep studies: Yes Year and Where: 2014 - [facility] Type of Sleep Study: Polysomnography HPI additional information: SHERIF HALE was diagnosed to have very severe, AHI 64.3, obstructive sleep apnea-hypopnea syndrome and returned today for BIPAP therapy annual follow-up. Sleep Study - Results Type of Sleep Study: Polysomnography Prior sleep studies: Yes Year and Where: 2014 - [facility] CPAP Compliance Data - Data Reviewed with Patient Average duration of nightly device use: 9 hours 35 minutes Compliance rate %: 98.9 (179/180 days used) Current pressure setting (cmH2O): 18/12 Average residual AHI: 2.4 Central apnea: 0.2 Obstructive apnea: 0.3 Hypopnea: 1.9 Average large leak: 6 hours 52 minutes Subjective Patient concerns: reports: dry mouth, nose, throat (nightly), other (humidifier leak noises; latch is not staying closed on humidifier). denies: aerophagia, mask discomfort, air blowing in eyes, mask leak noise, condensation in mask/hose, nasal congestion, epistaxis Observed to snore while using device: No Current pressure setting perceived as: comfortable On therapy, patient: reports: sleeping better, awakening more refreshed, being more awake and alert during the day, more rested overall. denies: drowsiness while driving Initial [place] Sleepiness Scale score: 15 (in 2014) Current [place] Sleepiness Scale score: 8 (05/05/23) Allergies and Home Medications Known drug allergies: No Drug allergies reviewed: Yes Home medication list reviewed: Yes (Metformin) Allergy and home medication list: Allergies No Known Drug Allergies Allergy (Verified 05/04/23 09:43) Review of Systems Review of systems same as previous: Yes (colonoscopy) Physical Exam Vital signs obtained and entered by: MYESHA Joseph MA Blood Pressure: 110/68 (LEFT ARM) Cuff size: regular Heart Rate: 77 O2 Saturation: 95 Height: 6 ft Weight: 231 lb Weight change since last visit: 11 lb loss Body Mass Index: 31.3 BMI Classification: Obese Impression and Plan 1. Obstructive Sleep Apnea-Hypopnea Syndrome, very severe, with good treatment compliance and good apnea control. On BIPAP therapy, the patient has better sleep quality and is more rested overall. Sherif states that he got a replacement from [employer] for his [employer]station BIPAP. He states the water chamber latch is popping open/not staying closed like it should. He is also getting leaking noises around the seal of the water chamber. He thinks the humidifier is working because he is still seeing the water level decreasing through the night. He does get some dry mouth but does not like the hot air from the humidifier when he is sleeping. He did put a cool humidifier in his room and this has improved. I will have his machine serviced to check the latch and seal. I advised him that he may have to pay for repairs and he voiced understanding. Patient's apnea severity and rationale for treatment to reduce apnea, improve sleep quality and reduce cardiovascular and cerebrovascular events was reviewed. I also reviewed the benefit of consistent device use of BIPAP for hypertension. 2. Obesity, unspecified. Currently patients BMI is 31.3. He has lost weight over the last year. Obesity increases the risk of apnea, BIPAP pressure requirements and overall health risks especially cardiovascular and diabetes. Thus patient is advised to continue to try to lose weight. * Continue BIPAP pressure at 18/12 cmH2O * Service machine: latch on humidifier popping open and leaking noises * Update supplies * Notify me if snoring with mask or feeling that the pressure is too much or too little * Attempt to lose weight * Call this office if any problems using BIPAP * Return for follow up in 1 year, or sooner if concerns arise Counseling Topics: Spare mask, Weight loss health impact Visit Type: In Office Time Spent with Patient (minutes): 23 Provider Statement: I spent 100% of the Face to Face Visit with the patient with greater than 50% spent counseling the patient and coordination of care.
[2023-05-05 09:06] VITALS: BP 110/68
== END 2023-05-05 08:22 | disposition home or self-care (01) ==
LOC: SC 08:21
PROVIDERS: ATTEND Nurse Practitioner Family
DX: G47.33 Obstructive sleep apnea (adult) (pediatric) (principal); E66.9 Obesity, unspecified; Z68.31 Body mass index [BMI] 31.0-31.9, adult
CPT/HCPCS: 99213; G0463; 99212

== ENCOUNTER 2024-01-16 15:29 | Emergency (ER) | payer MEDICARE, OTHER ==
[2024-01-16 15:54] VITALS: BP 138/71; O2SAT 98
== END 2024-01-16 16:46 | disposition left against medical advice (07) ==
LOC: ED 15:29
DX: Z53.21 Procedure and treatment not carried out due to patient leaving prior to being seen by health care provider (principal)

== ENCOUNTER 2024-02-07 08:37 | Outpatient (CLI) | payer MEDICARE, OTHER ==
[2024-02-07 11:58] LABS: BASOPHILS % (AUTO) 0.7 %; EOSINOPHILS # (AUTO) 0.4 10^3/uL (0.0-0.7); EOSINOPHILS % (AUTO) 6.7 %; HCT - HEMATOCRIT 41.8 % (42.0-52.0); HGB - HEMOGLOBIN 13.6 g/dL (14.0-18.0); LYMPHOCYTES # (AUTO) 1.4 10^3/uL (1.5-3.5); LYMPHOCYTES % (AUTO) 23.6 %; MEAN CORPUSCULAR HEMOGLOBIN 30.8 pg (27.0-31.0); MEAN CORPUSCULAR HGB CONC 32.5 g/dL (32.0-36.0); MEAN CORPUSCULAR VOLUME 94.8 fL (80.0-94.0); MEAN PLATELET VOLUME 10.3 fL (7.4-11.4); MONOCYTES # (AUTO) 0.6 10^3/uL (0.0-1.0); MONOCYTES % (AUTO) 9.6 %; NEUTROPHILS # (AUTO) 3.5 10^3/uL (1.5-6.6); NEUTROPHILS % (AUTO) 59.1 %; PLT - PLATELET COUNT 260 10^3/uL (130-450); RED BLOOD COUNT 4.41 10^6/uL (4.70-6.10); RED CELL DISTRIBUTION WIDTH 14.5 % (12.0-15.0); WHITE BLOOD COUNT 5.8 x10^3/uL (4.8-10.8)
[2024-02-07 12:14] LABS: ALBUMIN/GLOBULIN RATIO 1.1 (1.0-2.2); BILIRUBIN,TOTAL 0.7 mg/dL (0.2-1.0); CALCIUM 9.9 mg/dL (8.5-10.3); CREATININE 1.4 mg/dL (0.6-1.3); TOTAL PROTEIN 7.8 g/dL (6.4-8.9)
== END 2024-02-07 08:38 | disposition home or self-care (01) ==
LOC: LAB.N 08:37
PROVIDERS: ATTEND Internal Medicine Rheumatology
DX: M06.9 Rheumatoid arthritis, unspecified (principal)
CPT/HCPCS: 36415; 80053; 85025; 85651

== ENCOUNTER 2024-05-15 08:23 | Outpatient (CLI) | payer MEDICARE, OTHER ==
--- NOTE | 2024-05-15 08:58 | Sleep Patient Instructions ---
Sleep Center Visit Summary - Patient Visit Information Reason for Visit: Annual follow-up - Patient Instructions Additional Instructions: You will continue with BiPAP therapy with pressure set at 18/12 cmH2O. A supply prescription will be updated with your DME. We encourage you to continue to try to lose weight. Please follow up with the sleep care office in 1 year. - Clinic Information Contact: [facility] [address] [place] [address] [email or web address] T: [phone]
--- NOTE | 2024-05-15 09:06 | SLEEP CARE CONSULTATION ---
Information from patient questionnaire entered by Myesha Low. I have reviewed and concur with the information entered by Myesha Low. This document represents the service I personally performed and the decisions made by me, Day Prescott ARNP. History of Present Illness Service Date and Time: 05/15/2024 08 Previous diagnosis: Very Severe, Obstructive Sleep Apnea-Hypopnea Syndrome AHI: 64.3 (in 2014) Reason for follow up: annual Equipment type: BiPAP ([employer] AutoBIPAP; [place] CARD NEEDED FOR DOWNLOAD AND PRESSURE CHANGES) Equipment obtained from: Other ([facility]; getting supplies as needed) Mask style: Full face ([place]) Backup mask available: Yes Last cushion change: 1 month Prior sleep studies: Yes Year and Where: 2014 - [facility] Type of Sleep Study: Polysomnography HPI additional information: ROSALIA HALE was diagnosed to have very severe, AHI 64.3, obstructive sleep apnea-hypopnea syndrome and returned today for BIPAP therapy annual follow-up. Sleep Study - Results Type of Sleep Study: Polysomnography Prior sleep studies: Yes Year and Where: 2014 - [facility] CPAP Compliance Data - Data Reviewed with Patient Average duration of nightly device use: 9 hours 1 minutes Compliance rate %: 98.9 (11/17/2023-05/14/2024; 180/180 days used) Current pressure setting (cmH2O): 17/10 Average residual AHI: 2.2 Central apnea: 0.3 Obstructive apnea: 0.6 Hypopnea: 1.3 Average large leak: 3 hours 47 mins secs Subjective Missed days of use due to: reports: other (NO MISSED DAYS) Patient concerns: reports: nasal congestion, dry mouth, nose, throat. denies: aerophagia, mask discomfort, air blowing in eyes, mask leak noise, condensation in mask/hose, epistaxis Observed to snore while using device: No Current pressure setting perceived as: comfortable On therapy, patient: reports: sleeping better, awakening more refreshed, being more awake and alert during the day, more rested overall. denies: drowsiness while driving Initial [place] Sleepiness Scale score: 15 (in 2014) Current [place] Sleepiness Scale score: 6 (05/15/24) Allergies and Home Medications Known drug allergies: No Drug allergies reviewed: Yes Home medication list reviewed: Yes (Amitriptyline 25 mg, 1x daily) Allergy and home medication list: Allergies No Known Drug Allergies Allergy (Verified 05/11/24 13:13) Home Medications Medication Instructions Recorded Confirmed Last Taken Type Aspirin See Rx Instructions .ROUTE .COMPLEX 10/01/17 05/15/24 Unknown History Atorvastatin [Lipitor] See Rx Instructions .ROUTE .COMPLEX 10/01/17 05/15/24 Unknown History Fluticasone/Salmeterol [Advair See Rx Instructions .ROUTE .COMPLEX 10/01/17 05/15/24 Unknown History 100-50 Diskus] Golimumab [Simponi] See Rx Instructions .ROUTE .COMPLEX 10/01/17 05/15/24 Unknown History Levothyroxine Sodium See Rx Instructions .ROUTE .COMPLEX 10/01/17 05/15/24 Unknown History Losartan [Cozaar] See Rx Instructions .ROUTE .COMPLEX 10/01/17 05/15/24 Unknown History Tiotropium [place] [Spiriva] See Rx Instructions .ROUTE .COMPLEX 10/01/17 05/15/24 Unknown History Albuterol Sulfate [Proair Hfa See Rx Instructions .ROUTE .COMPLEX 01/19/21 05/15/24 Unknown History Inhaler] Gabapentin [Neurontin] See Rx Instructions .ROUTE .COMPLEX 01/19/21 05/15/24 Unknown History Oxycodone HCl/Acetaminophen See Rx Instructions .ROUTE 01/19/21 05/15/24 Unknown History [Percocet 10-325 mg Tablet] .COMPLEX PRN metFORMIN [Glucophage] See Rx Instructions .ROUTE .COMPLEX 05/05/23 05/15/24 Unknown History Amitriptyline [Elavil] See Rx Instructions .ROUTE .COMPLEX 05/15/24 05/15/24 Unknown History Review of Systems Review of systems same as previous: No (STAGE 3 KIDNEY DYSFUNCTION DECEMBER 2023) Physical Exam Vital signs obtained and entered by: MYESHA Joseph MA Blood Pressure: 134/64 (LEFT ARM) Cuff size: long Heart Rate: 74 O2 Saturation: 96 Height: 6 ft Weight: 238 lb Body Mass Index: 32.3 BMI Classification: Obese Impression and Plan 1. Obstructive Sleep Apnea-Hypopnea Syndrome, very severe, with good treatment compliance and good apnea control. On BiPAP therapy, the patient has better sleep quality and is more rested overall. He is still dealing with a broken latch on his humidifier. I wrote an order to have the machine serviced to see if they could fix this issue, but he was told he was not eligible for a new humidifier yet. He has a [employer] DreamStation auto BiPAP for which he did receive a replacement from [employer]. He is not sure how old his machine is, he thinks it might be almost 5 years old. It may be that he has to have a full machine replacement to be able to have this issue fixed. We will check into how soon he can update his BiPAP and let him know what we find out. If he is eligible for an updated device, I will write the order and let him know. Patient's apnea severity and rationale for treatment to reduce apnea, improve sleep quality and reduce cardiovascular and cerebrovascular events was reviewed. I also reviewed the benefit of consistent device use of BiPAP for hypertension. 2. Obesity, unspecified. Currently patients BMI is 32.3. Obesity increases the risk of apnea, BiPAP pressure requirements and overall health risks especially cardiovascular and diabetes. Thus patient is advised to lose weight. * Continue BiPAP pressure at 18/12 cmH2O * Update supply prescription * Notify me if snoring with mask or feeling that the pressure is too much or too little * Attempt to lose weight * Call this office if any problems using BiPAP * Return for follow up in 12 months, or sooner if concerns arise Counseling Topics: Spare mask, Weight loss health impact Prescriptions: Device supplies Follow up with Sleep Care in: 1 year Visit Type: In Office Time Spent with Patient (minutes): 23 Provider Statement: I spent 100% of the Face to Face Visit with the patient with greater than 50% spent counseling the patient and coordination of care.
[2024-05-15 09:26] VITALS: BP 134/64; O2SAT 96
== END 2024-05-15 08:24 | disposition home or self-care (01) ==
LOC: SC 08:23
PROVIDERS: ATTEND Nurse Practitioner Family
DX: G47.33 Obstructive sleep apnea (adult) (pediatric) (principal); E66.9 Obesity, unspecified; Z68.32 Body mass index [BMI] 32.0-32.9, adult
CPT/HCPCS: 99213; G0463; 99212

== ENCOUNTER 2024-05-25 18:52 | Outpatient (CLI) | payer MEDICARE, OTHER ==
--- NOTE | 2024-05-26 14:48 | Ultrasound Report ---
PROCEDURE: Renal (Retroperitoneal) INDICATIONS: KIDNEY DYSFUNCTION TECHNIQUE: Real-time scanning was performed of the retroperitoneal organs, with image documentation. COMPARISON: None. FINDINGS: Kidneys: Kidneys are mildly atrophic in size. Right kidney measures 10 point cm long; left kidney m easures 11.1 cm long. Right renal cortical thickness is 1.0 cm; left renal cortical thickness is 1.5 cm. No solid masses, hydronephrosis, or nephrolithiasis. Simple right renal cysts. Bladder: Pre-void bladder volume is 399 mL. Post-void residual is 50 mL. Pre-void images demonstra te no intraluminal masses or stones. On pre-void images, bilateral ureteral jets are noted with colo r Doppler interrogation. (Of note, ureteral jets may not be detectable in up to 25% of cases due to insufficient differences in specific gravity between ureteral and bladder urine). Miscellaneous: No free abdominal fluid. IMPRESSION: Simple right renal cyst. Reviewed by: Allyson Hamlin MD on 05/26/2024 2:46 PM PDT Approved by: Allyson Hamlin MD on 05/26/2024 2:46 PM PDT Station ID: [id number]
== END 2024-05-25 18:53 | disposition home or self-care (01) ==
LOC: DI 18:52
PROVIDERS: ATTEND Nurse Practitioner Family
DX: N28.9 Disorder of kidney and ureter, unspecified (principal); N13.8 Other obstructive and reflux uropathy; N28.1 Cyst of kidney, acquired

== ENCOUNTER 2024-07-17 09:05 | Outpatient (CLI) | payer MEDICARE, OTHER ==
[2024-07-17 13:04] LABS: CALCIUM 9.7 mg/dL (8.5-10.3); CREATININE 1.3 mg/dL (0.6-1.3); POTASSIUM 4.3 mmol/L (3.5-4.5)
== END 2024-07-17 09:06 | disposition home or self-care (01) ==
LOC: LAB.N 09:05
PROVIDERS: ATTEND Internal Medicine Nephrology
DX: N05.9 Unspecified nephritic syndrome with unspecified morphologic changes (principal)
CPT/HCPCS: 36415; 80048

== ENCOUNTER 2024-07-21 09:51 | Emergency (ER) | payer MEDICARE, OTHER ==
[2024-07-21 10:10] VITALS: BP 149/117; O2SAT 95
--- NOTE | 2024-07-21 10:16 | ED Physician Documentation ---
History of Present Illness - Stated complaint Stated Complaint: BACK/NECK PX - Chief complaint Chief Complaint: General - History obtained from History obtained from: Patient - Additonal information Additional information: He has pain of the posterior left shoulder for about a week. Radiates towards the neck. Get somewhat worse with motion of the arm and is keeping him from sleeping. He had it a year ago, very similar. At that time it resolved with some oxycodone which she has leftover, but not anymore. There is no injury. No fevers. No chest pain. No trouble breathing. PD PAST MEDICAL HISTORY - Past Medical History Cardiovascular: Hypertension, High cholesterol Respiratory: COPD Musculoskeletal: Rheumatoid arthritis - Past Surgical History Past Surgical History: Yes HEENT: Tonsil/Adenoidectomy - Present Medications Home Medications: Ambulatory Orders Medication Instructions Recorded Confirmed Aspirin See Rx Instructions .ROUTE .COMPLEX 10/01/17 05/15/24 Atorvastatin [Lipitor] See Rx Instructions .ROUTE .COMPLEX 10/01/17 05/15/24 Fluticasone/Salmeterol [Advair See Rx Instructions .ROUTE .COMPLEX 10/01/17 05/15/24 100-50 Diskus] Golimumab [Simponi] See Rx Instructions .ROUTE .COMPLEX 10/01/17 05/15/24 Levothyroxine Sodium See Rx Instructions .ROUTE .COMPLEX 10/01/17 05/15/24 Losartan [Cozaar] See Rx Instructions .ROUTE .COMPLEX 10/01/17 05/15/24 Tiotropium [place] [Spiriva] See Rx Instructions .ROUTE .COMPLEX 10/01/17 05/15/24 Albuterol Sulfate [Proair Hfa See Rx Instructions .ROUTE .COMPLEX 01/19/21 05/15/24 Inhaler] Gabapentin [Neurontin] See Rx Instructions .ROUTE .COMPLEX 01/19/21 05/15/24 Oxycodone HCl/Acetaminophen See Rx Instructions .ROUTE 01/19/21 05/15/24 [Percocet 10-325 mg Tablet] .COMPLEX PRN metFORMIN [Glucophage] See Rx Instructions .ROUTE .COMPLEX 05/05/23 05/15/24 Amitriptyline [Elavil] See Rx Instructions .ROUTE .COMPLEX 05/15/24 05/15/24 oxyCODONE [Roxicodone] 5 mg PO Q4-6H PRN #15 tablet 07/21/24 - Allergies Allergies/Adverse Reactions: Allergies Allergy/AdvReac Type Severity Reaction Status Date / Time No Known Drug Allergies Allergy Verified 07/21/24 10:02 - Social History Does the pt smoke?: No Smoking Status: Never smoker Does the pt have substance abuse?: No - POLST Patient has POLST: No PD ED PE NORMAL - Vitals Vital signs reviewed: Yes - General General: Alert and oriented X 3, No acute distress - HEENT HEENT: PERRL, EOMI - Neck Neck: Supple, no meningeal sign, No bony TTP - Cardiac Cardiac: RRR, No murmur - Respiratory Respiratory: No respiratory distress, Clear bilaterally - Abdomen Abdomen: Non tender - Extremities Extremities: Other (He has reproducible tenderness of the muscles behind the left shoulder with relatively good range of motion of the shoulder itself.) - Neuro Neuro: Alert and oriented X 3, Normal speech Results - Vitals Vitals: Vital Signs - 24 hr 07/21/24 10:02 Temperature 36.4 C L Heart Rate 83 Respiratory 15 Rate Blood Pressure 149/117 H O2 Saturation 95 Oxygen O2 Source Room air PD Medical Decision Making - ED course ED course: The reproducibility and recurrent nature would suggest that he has a left shoulder spasm. Unlikely to be a vascular issue, referred thoracic pain. He was given close return precautions. Departure - Departure Disposition: 01 Home, Self Care Clinical Impression: Muscle spasm of left shoulder Condition: Good Record reviewed to determine appropriate education?: Yes Instructions: ED Spasm Muscle Prescriptions: oxyCODONE [Roxicodone] 5 mg PO Q4-6H PRN #15 tablet PRN Reason: Pain Comments: I sent your [facility] [place]. Given your symptoms and the reproducibility with palpation of muscle, this does seem like muscular pain in the deltoid area. Call your doctor to arrange a follow-up appointment, make the next available appointment. In the interim, return anytime if worse or if new symptoms develop. I am prescribing a short course of narcotic pain medication for you. These are potentially dangerous and addictive medications that should be used carefully. These medications may constipate you. Take an ufkr-rcl-dzuxalu stool softener (docusate) twice daily with plenty of water while taking these medications. If you go 24 hours without a bowel movement, take [id number] miralax, per package instructions. Do not drink or drive while taking these medications. If you received narcotic or sedating medications while in the emergency department, do not drive for 24 hours. Store this medication in a safe, secure place and out of reach of children. It is a violation of federal law to give or sell this medication to another person or to use in a manner other than prescribed. The ED will not refill narcotic prescriptions, including prescriptions lost or stolen. To dispose of unwanted medications: 1. [facility] provides a drop box for medication in pill form only (no liquids) 8:00 am to 4:30 p.m. Tuesday-Tuesday in the lobby of the [facility], [address] Empty pills into ziplock bag before disposal. Call [phone] for information. [email or web address] is a free service available to all [facility] residents. Go to [email or web address] Note that many narcotic pain relievers also contain Tylenol/acetaminophen. Please ensure that your total dose of acetaminophen from all sources does not exceed 3 g (3000 mg) per day. Forms: PCP List
== END 2024-07-21 10:19 | disposition home or self-care (01) ==
LOC: ED 09:51
DX: M62.838 Other muscle spasm (principal)
CPT/HCPCS: 99282; 99283